=== PATIENT | male | born 2000 | race Caucasian/White ===

== ENCOUNTER 2021-01-08 14:50 | Emergency (ER) | payer OTHER, SELFPAY ==
--- NOTE | 2021-01-08 14:59 | PC.NURSE ---
Pt states he has to leave to drop off his girlfriend. Explained once he left the property he had to re sign in to the ER to be seen. Pt understood
== END 2021-01-08 14:59 | disposition left against medical advice (07) ==
PROVIDERS: PCP Pediatrics
DX: Z53.21 Procedure and treatment not carried out due to patient leaving prior to being seen by health care provider (principal)
CPT/HCPCS: 99199